=== PATIENT | male | born 1930 | race Caucasian/White ===

== ENCOUNTER 2017-02-23 11:18 | Inpatient (IN) | payer OTHER ==
[~2017-02-23] VITALS: Ht 182.9 cm; Wt 83.9 kg
[2017-02-23 11:34] VITALS: BP 101/64
--- NOTE | 2017-02-23 11:43 | NUR ---
PT W/C ASSISTED TO BED 1.
--- NOTE | 2017-02-23 11:49 | NUR ---
86M BIB FAMILY C/O ELEVATED POTASSIUM X TODAY; PER FAMILY, PT WAS SENT HERE BY DR. WARD D/T ABNORMAL LABS; PT AA&OX4 AT THIS TIME, PERRLA, BL LUNG SOUNDS CLEAR, RR EVEN/UNLABORED, SKIN IS WARM/DRY/INTACT AT THIS TIME; PT NOTED WITH ERYTHEMA TO LEFT BUTTOCKS, DARK DISCOLORATION TO RT LOWER EXTREMITY FROM SURGERY 50 YEARS AGO, AND PINK DISCOLORATION TO LEFT FOOT 4TH DIGIT FROM "PT CLIPPING HIS NAIL TOO CLOSE"; NO ACTIVE BLEEDING NOTED TO SITE AT THIS TIME; PT AMBULATES WITH CANE; PT NOTED WITH TACHYCARDIA ON THE MONITOR AT THIS TIME; PT STATES NO PAIN AND NO N/V/D AT THIS TIME; PT PLACED ON MONITOR, RESTING IN BED WITH HOB ELEVATED AND IN LOWEST POSITION; POSITIONED FOR COMFORT; ER MADE AWARE OF STATUS. WILL CONTINUE TO MONITOR. Addendum: 02/23/17 at 1411 by Wummelkiste ERYTHEMA NOTED TO RIGHT/LEFT BUTTOCKS
--- NOTE | 2017-02-23 12:02 | NUR ---
XRAY AT BEDSIDE.
[2017-02-23 12:08] LABS: BASOPHILS # (AUTO) 0.1 K/uL (0.00-0.22); BASOPHILS % (AUTO) 1.1 % (0.0-2.0); EOSINOPHILS # (AUTO) 0.1 K/uL (0-0.4); EOSINOPHILS % (AUTO) 0.9 % (0.0-4.0); HEMATOCRIT 32.6 % (36-52); HEMOGLOBIN 10.5 g/dL (12.0-18.0); LYMPHOCYTES # (AUTO) 0.5 K/uL (2.0-11.5); LYMPHOCYTES % (AUTO) 3.9 % (20.5-51.1); MEAN CORPUSCULAR HEMOGLOBIN 31 pg (27-31); MEAN CORPUSCULAR HGB CONC 32 g/dL (33-37); MEAN CORPUSCULAR VOLUME 95 fL (80-94); MONOCYTES # (AUTO) 0.9 K/uL (0.8-1.0); MONOCYTES % (AUTO) 6.6 % (1.7-9.3); NEUTROPHILS # (AUTO) 11.4 K/uL (1.8-7.7); NEUTROPHILS % (AUTO) 87.5 % (42.2-75.2); PLATELET COUNT (AUTO) 368 K/uL (140-450); RED BLOOD CELL COUNT(AUTO) 3.45 MIL/uL (4.20-6.10); RED CELL DISTRIBUTION WIDTH 14.9 % (11.6-13.7)
[2017-02-23] MEDS ORDERED: PREDNISONE 5 MG TABLET (12:13)
[2017-02-23] MEDS ORDERED: LORAZEPAM 1 MG TABLET (12:13)
[2017-02-23] MEDS ORDERED: BICALUTAMIDE 50 MG TABLET (12:13)
[2017-02-23] MEDS ORDERED: ENALAPRIL MALEATE 10 MG TAB (12:13)
[2017-02-23 12:28] LABS: PROTHROMBIN TIME 11.2 secs (10.8-13.4)
[2017-02-23 12:29] LABS: ALBUMIN 2.8 g/dL (3.4-5.0); ANION GAP 18.1 (8-16); ASPARTATE AMINOTRANSFERASE 20 U/L (15-37); CARBON DIOXIDE 19.6 mmol/L (21-32); CHLORIDE 108 mmol/L (98-107); GLUCOSE 162 mg/dL (74-106); POTASSIUM 5.7 mmol/L (3.5-5.1); SODIUM SERUM 140 mmol/L (136-145); TOTAL BILIRUBIN 0.5 mg/dL (0.0-1.0)
[2017-02-23 12:33] LABS: UREA NITROGEN, BLOOD 99 mg/dL (7-18)
[2017-02-23 12:34] LABS: CREATININE 6.2 mg/dL (0.7-1.3)
[2017-02-23] MEDS ORDERED: SODIUM POLYSTYRENE 15 GM/60 ML UDBTL PO ONE (12:40)
[2017-02-23] MEDS ORDERED: NACL 0.9% 1,000 ML IV ONE (13:15)
[2017-02-23] MEDS ORDERED: ONDANSETRON 4 MG/2 ML VIAL IVP PRN (13:35)
[2017-02-23] MEDS ORDERED: MORPHINE SULFATE 2 MG/ML SYR IVP PRN (13:35)
--- NOTE | 2017-02-23 14:12 | NUR ---
REPORT GIVEN TO BRITTANY DYER
--- NOTE | 2017-02-23 14:20 | NUR ---
Patient will be admitted to care of DR. DELATORRE. Admited to TELEMETRY. Will go to room 107A. Belongings list completed. Report to BRITTANY DYER.
--- NOTE | 2017-02-23 14:30 | NUR ---
RECEIVED PT ON UNIT [facility]IA [facility], PT IS A/OX4, AMBULATES WITH ASSIST, IV IS ON THE LEFT AC, PATENT, INTACT, FLUSHING WELL, PT HAS DISCOLORATION ON HIS RIGHT LOWER EXTREMITY, NO S/S OF RESPIRATORY DISTRESS OR DISCOMFORT NOTED, ORIENTED PT TO ROOM, DISCUSSED PLAN OF CARE WITH PT, PT VERBALIZED UNDERSTANDING, SAFETY/FALL PRECAUTIONS ARE IN PLACE, FAMILY IS AT BEDSIDE, CALL LIGHT WITHIN REACH, WILL CONTINUE TO MONITOR.
[2017-02-23 16:00] VITALS: BP 136/75
[2017-02-23] MEDS ORDERED: SODIUM POLYSTYRENE 15 GM/60 ML UDBTL PO SCH (17:30)
[2017-02-23] MEDS ORDERED: NACL 0.9% 500 ML IV SCH (17:30)
[2017-02-23] MEDS ORDERED: SODIUM POLYSTYRENE 15 GM/60 ML UDBTL PO PRN (18:30)
--- NOTE | 2017-02-23 18:30 | NUR ---
CALLED DR. ARENAS BACK I LET HIM KNOW I HAD DONE THE BLADDER SCAN AND THE PT HAD [address] ARENAS GIVE FLUIDS NS AT 75ML/HR AFTER BOLUS, GIVE 1 AMP OF CALCIUM CHLORIDE IVP OVER 10MIN, 1 AMP OF D5O, 1 AMP OF SODIUM BI CARB, 10 UNITS OF INSULIN, RENAL ULTRASOUND STAT AND INSERT FELICIANO.
--- NOTE | 2017-02-23 18:31 | NUR ---
NS 500 ML IV BOLUS STARTED AT THIS TIME.
[2017-02-23 19:11] LABS: APPEARANCE,URINE CLEAR (CLEAR); BILIRUBIN,URINE NEGATIVE (NEGATIVE); BLOOD, URINE TRACE-I (NEGATIVE); COLOR,URINE YELLOW (YELLOW); LEUKOCYTE ESTERASE ,URINE NEGATIVE (NEGATIVE); NITRITE, URINE NEGATIVE (NEGATIVE); PH,URINE 5.5 (5.0-9.0); UGLUCOSE NEGATIVE (NEGATIVE)
[2017-02-23] MEDS ORDERED: INSULIN HUMAN REGULAR 100 UNITS/ML 10 ML VIAL IVP SCH (19:35)
[2017-02-23] MEDS ORDERED: DEXTROSE 50% 50 ML SYR IVP SCH (19:35)
[2017-02-23] MEDS ORDERED: SODIUM BICARBONATE 8.4% PFS 50 MEQ/50 ML SYR IVP SCH (19:35)
--- NOTE | 2017-02-23 19:45 | NUR ---
ENDORSED PT TO DIRECTOR NICU NURSE, FOR CONTINUITY OF CARE, PT STABLE AT THIS TIME.
--- NOTE | 2017-02-23 19:46 | NUR ---
RECEIVED REPORT FROM DAY SHIFT NURSE. PT LYING COMFORTABLY IN BED. AAOX4. RELATIVES AT BEDSIDE. IV TO LEFT AC #20G. DISCUSSED PLAN OF CARE, PT AND RELATIVES VERBALIZED UNDERSTANDING. SAFETY PRECAUTION IN PLACE. CALL LIGHT WITHIN REACH. WILL CONTINUE TO MONITOR.
[2017-02-23 20:00] VITALS: BP 125/68
--- NOTE | 2017-02-23 20:50 | NUR ---
DR. ARENAS IS HERE TO SEE PT. ORDERED BMP AND CBC ON 02/24/17
[2017-02-23] MEDS: NACL 0.9% 1,000 ML IV SCH (20:59)
[2017-02-23] MEDS ORDERED: CALCIUM CHLORIDE 10% 100 MG/ML SYR IVP SCH (21:00)
[2017-02-23] MEDS ORDERED: INSULIN LISPRO 100 UNITS/ML VIAL SUBQ SCH (21:00)
--- NOTE | 2017-02-23 21:00 | NUR ---
FELICIANO CATH 16F INSERTED. PT TOLERATED PROCEDURE WELL.
[2017-02-23] MEDS: HYDROcodone/APAP 5/325 MG 1 TAB TAB PO PRN (21:07)
[2017-02-23 21:18] LABS: RBC,URINE NONE SEEN /HPF (0-5); WBC,URINE 0-5 (RARE) /HPF (0-5)
--- NOTE | 2017-02-23 23:30 | NUR ---
PT LYING COMFORTABLY IN BED. NO C/O PAIN OR DISCOMFORT. ALL NEEDS MET AT THIS TIME. CALL LIGHT WITHIN REACH.
[2017-02-24] VITALS: BP 115/62
--- NOTE | 2017-02-24 02:00 | NUR ---
PT IS LEEPING. NO S/S OF DISTRESS NOTED. CALL LIGHT WITHIN REACH. Addendum: 02/24/17 at 0609 by Thomas Murdock RN DISREGARD.
--- NOTE | 2017-02-24 02:00 | NUR ---
PT IS SLEEPING. NO S/S OF DISTRESS NOTED. CALL LIGHT WITHIN REACH.
--- NOTE | 2017-02-24 03:40 | NUR ---
PT AWAKE, LYING COMFORTABLY IN BED. NO C/O PAIN OR DISCOMFORT. CALL LIGHT WITHIN REACH.
[2017-02-24 04:00] VITALS: BP 115/61
--- NOTE | 2017-02-24 05:36 | NUR ---
PT SLEEPING BUT WAKES EASILY. NO S/S OF DISTRESS. CALL LIGHT WITHIN REACH
[2017-02-24 07:00] LABS: BASOPHILS # (AUTO) 0.1 K/uL (0.00-0.22); BASOPHILS % (AUTO) 1.1 % (0.0-2.0); EOSINOPHILS # (AUTO) 0.1 K/uL (0-0.4); EOSINOPHILS % (AUTO) 1.2 % (0.0-4.0); HEMATOCRIT 29.1 % (36-52); HEMOGLOBIN 9.3 g/dL (12.0-18.0); LYMPHOCYTES # (AUTO) 1.7 K/uL (2.0-11.5); MEAN CORPUSCULAR HEMOGLOBIN 31 pg (27-31); MEAN CORPUSCULAR HGB CONC 32 g/dL (33-37); MEAN CORPUSCULAR VOLUME 96 fL (80-94); MONOCYTES # (AUTO) 1.1 K/uL (0.8-1.0); MONOCYTES % (AUTO) 9.8 % (1.7-9.3); NEUTROPHILS # (AUTO) 8.1 K/uL (1.8-7.7); NEUTROPHILS % (AUTO) 72.9 % (42.2-75.2); PLATELET COUNT (AUTO) 292 K/uL (140-450); RED BLOOD CELL COUNT(AUTO) 3.03 MIL/uL (4.20-6.10); WHITE BLOOD COUNT (AUTO) 11.1 K/uL (4.8-10.8)
--- NOTE | 2017-02-24 07:10 | NUR ---
ENDORSED PT TO DAY SHIFT NURSE. PT IN STABLE CONDITION.
--- NOTE | 2017-02-24 07:15 | NUR ---
RECEIVED REPORT FROM SONG AND DANCE PERFORMER NURSE, PT IS SLEEPING IN BED BUT EASILY AWAKEN, A/OX4, AMBULATES WITH ASSIST, PT HAS IV ON THE LEFT AC, PATENT, INTACT, FLUSHING WELL, PT HAS RIGHT LOWER EXTREMITY DISCOLORATION, FELICIANO CATHETER IS IN PLACE WITH 100ML OF CLEAR, YELLOW URINE, NO S/S OF RESPIRATORY DISTRESS OR DISCOMFORT NOTED, DISCUSSED PLAN OF CARE WITH PT, PT VERBALIZED UNDERSTANDING, SAFETY/FALL PRECAUTIONS ARE IN PLACE, CALL LIGHT IS WITHIN REACH, WILL CONTINUE TO MONITOR.
[2017-02-24 07:25] LABS: ANION GAP 18.1 (8-16); CARBON DIOXIDE 18.6 mmol/L (21-32); CHLORIDE 113 mmol/L (98-107); GLUCOSE 91 mg/dL (74-106); POTASSIUM 4.7 mmol/L (3.5-5.1); SODIUM SERUM 145 mmol/L (136-145)
[2017-02-24 07:27] LABS: MAGNESIUM 1.7 mg/dL (1.8-2.4); PHOSPHORUS 6.3 mg/dL (2.5-4.9)
[2017-02-24 07:54] LABS: UREA NITROGEN, BLOOD 90 mg/dL (7-18)
[2017-02-24 07:55] LABS: CREATININE 6.1 mg/dL (0.7-1.3)
[2017-02-24 08:00] VITALS: BP 123/51
--- NOTE | 2017-02-24 08:54 | NUR ---
DUE MEDICATION GIVEN, PT TOLERATED WELL, PATIENT'S FAMILY IS AT BEDSIDE, CALL LIGHT WITHIN REACH.
--- NOTE | 2017-02-24 09:00 | NUR ---
PATIENT HAS BEEN SCREENED AND CATEGORIZED MODERATE NUTRITION RISK. PATIENT WILL BE SEEN WITHIN 3-5 DAYS OF ADMISSION. 02/26/17-02/28/[address]
[2017-02-24] MEDS: NACL 0.9% 1,000 ML IV SCH ×2 (09:20→12:35)
--- NOTE | 2017-02-24 10:33 | NUR ---
PT OFF UNIT, TAKEN TO RADIOLOGY TO HAVE CT SCAN OF ABDOMEN DONE. PT LEFT IN STABLE CONDITION.
--- NOTE | 2017-02-24 11:00 | NUR ---
PT RETURNED TO UNIT FROM RADIOLOGY, PT STABLE, CALL LIGHT WITHIN REACH.
[2017-02-24 12:00] VITALS: BP 124/66
--- NOTE | 2017-02-24 13:00 | NUR ---
SPOKE TO DR. FRIED, UROLOGIST, INFORMED HIM DR. DELATORRE HAD REQUESTED A CONSULT FOR PATIENT.
[2017-02-24] MEDS ORDERED: CALCIUM ACETATE 667 MG TAB PO SCH (13:40)
[2017-02-24] MEDS ORDERED: MAG SULF 2000 MG/WATER PREMIX 50 ML IV SCH (14:00)
--- NOTE | 2017-02-24 15:33 | NUR ---
PT TRANSFERRED TO WOUND CARE BED, PATIENT TOLERATED WELL. Addendum: 02/24/17 at 1535 by Beckie Fernando RN WRONG ENTRY. PT WAS NOT TRANSFERRED TO WOUND CARE BED.
[2017-02-24 16:00] VITALS: BP 127/72
--- NOTE | 2017-02-24 16:00 | NUR ---
PATIENT REFUSED PNA AND FLU VACCINE.
--- NOTE | 2017-02-24 19:15 | NUR ---
ENDORSED PT TO REGISTERED SAFETY ENGINEER NURSE FOR CONTINUITY OF CARE, PT STABLE AT THIS TIME.
--- NOTE | 2017-02-24 19:16 | NUR ---
PATIENT REPORT RECEIVED FROM MORNING NURSE. PATIENT IS AWAKE, ALERT AND ORIENTED. NO SIGNS AND SYMPTOMS OF DISTRESS NOTED. PATIENT'S SON IS AT BEDSIDE. IV SITE NOTED ON LEFT AC, IVF INFUSING WELL. BED IN LOWEST POSITION, SIDE RAILS UP AND CALL LIGHT WITHIN REACH. WILL CONTINUE TO MONITOR.
--- NOTE | 2017-02-24 19:30 | NUR ---
PATIENT SEEN BY DR. RFIED. SON IS AT BEDSIDE
[2017-02-24 20:00] VITALS: BP 114/66
[2017-02-24] MEDS: HYDROcodone/APAP 5/325 MG 1 TAB TAB PO PRN (20:12)
--- NOTE | 2017-02-24 23:41 | NUR ---
CHECKED ON PATIENT, PATIENT IS ASLEEP. NO SIGNS AND SYMPTOMS OF DISTRESS NOTED. BREATHING EVEN AND UNLABORED. BED IN LOWEST POSITION, SIDE RAILS UP AND CALL LIGHT WITHIN REACH. WILL CONTINUE TO MONITOR.
[2017-02-25] VITALS: BP 118/68
[2017-02-25] MEDS: HYDROcodone/APAP 5/325 MG 1 TAB TAB PO PRN (03:53)
[2017-02-25 04:00] VITALS: BP 137/72
[2017-02-25 06:32] LABS: BASOPHILS # (AUTO) 0.2 K/uL (0.00-0.22); BASOPHILS % (AUTO) 1.9 % (0.0-2.0); EOSINOPHILS # (AUTO) 0.2 K/uL (0-0.4); EOSINOPHILS % (AUTO) 1.7 % (0.0-4.0); HEMATOCRIT 25.6 % (36-52); HEMOGLOBIN 8.4 g/dL (12.0-18.0); LYMPHOCYTES # (AUTO) 1.3 K/uL (2.0-11.5); LYMPHOCYTES % (AUTO) 13.4 % (20.5-51.1); MEAN CORPUSCULAR HEMOGLOBIN 31 pg (27-31); MEAN CORPUSCULAR HGB CONC 33 g/dL (33-37); MEAN CORPUSCULAR VOLUME 96 fL (80-94); PLATELET COUNT (AUTO) 249 K/uL (140-450); RED BLOOD CELL COUNT(AUTO) 2.67 MIL/uL (4.20-6.10); RED CELL DISTRIBUTION WIDTH 15.1 % (11.6-13.7); WHITE BLOOD COUNT (AUTO) 9.7 K/uL (4.8-10.8)
[2017-02-25 06:56] LABS: ALBUMIN 1.9 g/dL (3.4-5.0); ANION GAP 14.7 (8-16); ASPARTATE AMINOTRANSFERASE 21 U/L (15-37); CARBON DIOXIDE 19.8 mmol/L (21-32); CHLORIDE 110 mmol/L (98-107); GLUCOSE 101 mg/dL (74-106); PHOSPHORUS 5.7 mg/dL (2.5-4.9); POTASSIUM 3.5 mmol/L (3.5-5.1); SODIUM SERUM 141 mmol/L (136-145); TOTAL BILIRUBIN 0.5 mg/dL (0.0-1.0); URIC ACID 6.3 mg/dL (2.6-7.2)
[2017-02-25 07:13] LABS: UREA NITROGEN, BLOOD 77 mg/dL (7-18)
[2017-02-25 07:14] LABS: CREATININE 5.8 mg/dL (0.7-1.3)
--- NOTE | 2017-02-25 07:20 | NUR ---
PATIENT REPORT GIVEN TO MORNING NURSE. PATIENT IS IN STABLE CONDITION
[2017-02-25] MEDS ORDERED: CALCIUM ACETATE 667 MG TAB PO SCH (08:00)
--- NOTE | 2017-02-25 08:00 | NUR ---
REPORT RECEIVED FROM [facility] NURSE. PT IN BED AWAKE ALERT AND ORIENTED. PT IS ABLE TO MAKE NEEDS KNOWN VIA URDU ONLY. PT IS ABLE TO FOLLOW COMMAND APPROPRIATELY. PT DENIES ANY PAIN AT THIS TIME. NO RESP DISTRESS NOTED. ALL SAFETY MEASURES IN PROGRESS. PT IS AWARE TO CALL FOR HELP AT ALL TIMES. NOT TO GET OOB WITHOUT ASSIST. V/S STABLE.
[2017-02-25 08:02] VITALS: BP 135/65
--- NOTE | 2017-02-25 08:57 | NUR ---
PT IN BED SLEEPING CALMLY. NO ACUTE DISTRESS NOTED. PT TOLERATED BREAKFAST WELL. PT IS NORMAL SINUS RHYTHM ON THE MONITOR.
[2017-02-25] MEDS ORDERED: ACET-1083 PO (09:45)
[2017-02-25] MEDS ORDERED: AMLO2.5T PO (09:59)
[2017-02-25 11:24] VITALS: BP 130/62
--- NOTE | 2017-02-25 15:35 | NUR ---
CM NOTE INITIAL REVIEW FAXED TO [facility] / FAX# [phone], ATTN: SAUD #[phone]
== END 2017-02-25 16:05 | disposition home or self-care (01) | DRG 469 ==
LOC: MED 11:18 → MTU 13:37 → OBSVTOIN 02-24 12:33
PROVIDERS: ADMIT Hospitalist; ATTEND Hospitalist
DX: N17.9 Acute kidney failure, unspecified (principal); E43 Unspecified severe protein-calorie malnutrition; E87.2 Acidosis; D64.9 Anemia, unspecified; C61 Malignant neoplasm of prostate; E87.5 Hyperkalemia; I12.9 Hypertensive chronic kidney disease with stage 1 through stage 4 chronic kidney disease, or unspecified chronic kidney disease; N13.30 Unspecified hydronephrosis; E83.42 Hypomagnesemia; N18.9 Chronic kidney disease, unspecified; N32.0 Bladder-neck obstruction; E83.39 Other disorders of phosphorus metabolism; E83.51 Hypocalcemia; D72.829 Elevated white blood cell count, unspecified; E78.00 Pure hypercholesterolemia, unspecified; Z87.891 Personal history of nicotine dependence; Z68.25 Body mass index [BMI] 25.0-25.9, adult; Z79.899 Other long term (current) drug therapy
CPT/HCPCS: 96360; 99285; G0378; 36415; 71010; 76770; 80048; 80053; 81001; 82728; 82948; 83540; 83735; 83880; 84100; 84132; 84484; 84550; 85025; 85610; 85730; 87081; 93005; J1644; J1815; J3475; J7030; Q0092

== ENCOUNTER 2017-02-27 12:53 | Emergency (ER) | payer OTHER ==
[~2017-02-27] VITALS: Ht 182.9 cm; Wt 88.9 kg
[~2017-02-27 12:53] MED LIST: ACET-1083 PO; AMLO2.5T PO; BICALUTAMIDE 50 MG TABLET; ENALAPRIL MALEATE 10 MG TAB; LORAZEPAM 1 MG TABLET; PREDNISONE 5 MG TABLET
[2017-02-27 13:00] VITALS: BP 122/65
--- NOTE | 2017-02-27 14:00 | NUR ---
86/M BIB SON HERE FOR LEG FELICIANO BAG CHANGE. LAST PLACED 1WK AGO. PT STS HE WOULD LIKE IT CHANGED TO BIGGER INDWELLING CATHETER BAG. PT STS UNK IF FEVERS AT HOME. DENIES N/V/D; SKIN IS PINK/WARM/DRY; AOX4 WITH EVEN AND STEADY GAIT; RR ARE EVEN AND UNLABORED; PT DENIES ANY FEVER, CP, SOB, OR COUGH AT THIS TIME; PATIENT STATES PAIN OF 0/10 AT THIS TIME; VSS; PATIENT POSITIONED FOR COMFORT,BED DOWN. ER MD MADE AWARE OF PT STATUS.
[2017-02-27 14:20] LABS: ANION GAP 15.4 (8-16); CARBON DIOXIDE 20.2 mmol/L (21-32); CHLORIDE 104 mmol/L (98-107); GLUCOSE 175 mg/dL (74-106); POTASSIUM 3.6 mmol/L (3.5-5.1); SODIUM SERUM 136 mmol/L (136-145)
[2017-02-27 14:27] LABS: UREA NITROGEN, BLOOD 76 mg/dL (7-18)
[2017-02-27 14:28] LABS: CREATININE 6.6 mg/dL (0.7-1.3)
[2017-02-27 14:30] LABS: BASOPHILS # (AUTO) 0.1 K/uL (0.00-0.22); BASOPHILS % (AUTO) 0.5 % (0.0-2.0); EOSINOPHILS # (AUTO) 0.1 K/uL (0-0.4); EOSINOPHILS % (AUTO) 0.5 % (0.0-4.0); HEMATOCRIT 25.9 % (36-52); HEMOGLOBIN 8.7 g/dL (12.0-18.0); LYMPHOCYTES # (AUTO) 0.6 K/uL (2.0-11.5); LYMPHOCYTES % (AUTO) 5.4 % (20.5-51.1); MEAN CORPUSCULAR HEMOGLOBIN 31 pg (27-31); MEAN CORPUSCULAR HGB CONC 34 g/dL (33-37); MEAN CORPUSCULAR VOLUME 93 fL (80-94); MONOCYTES % (AUTO) 8.2 % (1.7-9.3); NEUTROPHILS # (AUTO) 9.9 K/uL (1.8-7.7); NEUTROPHILS % (AUTO) 85.4 % (42.2-75.2); PLATELET COUNT (AUTO) 268 K/uL (140-450); RED CELL DISTRIBUTION WIDTH 14.7 % (11.6-13.7); WHITE BLOOD COUNT (AUTO) 11.7 K/uL (4.8-10.8)
[2017-02-27 15:04] VITALS: BP 111/60
--- NOTE | 2017-02-27 15:04 | NUR ---
Patient discharged with v/s stable. Written and verbal after care instructions given and explained. Patient verbalized understanding. Ambulatory with steady gait with cane. All questions addressed prior to discharge. Advised to follow up with PMD. Pt given indwelling catheter kit to change leg bag to indwelling catheter bag at night; er sechrist aware of plan of care and agrees with plan of care; wilder castano demostrated how to change leg bag to indwelling catheter bag; pt and pt's son verbalized understanded.
== END 2017-02-27 15:04 | disposition home or self-care (01) ==
LOC: MED 12:53
DX: Z46.6 Encounter for fitting and adjustment of urinary device (principal); I12.9 Hypertensive chronic kidney disease with stage 1 through stage 4 chronic kidney disease, or unspecified chronic kidney disease; N18.9 Chronic kidney disease, unspecified; Z79.899 Other long term (current) drug therapy; Z85.46 Personal history of malignant neoplasm of prostate
CPT/HCPCS: 36415; 80048; 85025; 99284

== ENCOUNTER 2017-03-04 19:57 | Inpatient (IN) | payer OTHER ==
[~2017-03-04] VITALS: Ht 182.9 cm; Wt 84.9 kg
[~2017-03-04 19:57] MED LIST changes: -ENALAPRIL MALEATE 10 MG TAB; -LORAZEPAM 1 MG TABLET
[2017-03-04 20:04] VITALS: BP 112/54
--- NOTE | 2017-03-04 20:20 | NUR ---
PT TAKEN TO BED 11.
[2017-03-04] MEDS ORDERED: IBUPROFEN 400 MG TAB ONE (20:25)
--- NOTE | 2017-03-04 21:00 | NUR ---
86Y/M PRESENTS TO ER C/O FEVER AND GENERALIZED BODY ACHE. PMH PROSTATE CANCER, HTN, KIDNEY DZ. NKA. PT AA&O NICARAGUAN SPEAKING, SON IS AT BEDSIDE AND STATES PT HAS BEEN ACTING "CONFUSED". PT IS ANSWERING QUESTIONS APPROPRIATELY AT THIS TIME. PT TAKES TYLENOL AT HOME AND 2 DAYS AGO HAD GENERALIZED PAIN W/ NO RELIEF FROM TYLENOL. PT STATES HE HAS HAD FEVER WELL. PT HAS CATHETER THAT WAS PLACED A WEEK AGO ACCORDING TO SON. URINE OUTPUT IS ADEQUATE, CLEAR, YELLOW URINE. ABD IS ROUND, SOFT, NON TENDER, ACTIVE BS X4, BL LUNG SOUNDS CLEAR THROUGH OUT, TACHYPNEA NOTED. PT IS ON RA 98%. PT HAS SCAR AND DARKENING NOTED TO RT ANKLE AREA, SON STATES IT IS FROM A SURGERY "MANY" YEARS AGO, NO OPEN SKIN, REDNESS OR BLEEDING NOTED. PT IN BED, FAMILY AT BEDSIDE, ER MD NOTIFED OF PT STATUS.
--- NOTE | 2017-03-04 21:07 | NUR ---
Patient being evaluated by Dr. Bryan at bedside.
[2017-03-04] MEDS ORDERED: NACL 0.9% 1,000 ML IV ONE (21:15)
[2017-03-04 21:47] LABS: BASOPHILS # (AUTO) 0.2 K/uL (0.00-0.22); BASOPHILS % (AUTO) 1.7 % (0.0-2.0); EOSINOPHILS # (AUTO) 0.2 K/uL (0-0.4); EOSINOPHILS % (AUTO) 1.4 % (0.0-4.0); HEMATOCRIT 24.8 % (36-52); HEMOGLOBIN 8.2 g/dL (12.0-18.0); LYMPHOCYTES # (AUTO) 0.8 K/uL (2.0-11.5); LYMPHOCYTES % (AUTO) 6.8 % (20.5-51.1); MEAN CORPUSCULAR HEMOGLOBIN 31 pg (27-31); MEAN CORPUSCULAR HGB CONC 33 g/dL (33-37); MEAN CORPUSCULAR VOLUME 94 fL (80-94); MONOCYTES # (AUTO) 1.3 K/uL (0.8-1.0); MONOCYTES % (AUTO) 11.1 % (1.7-9.3); NEUTROPHILS # (AUTO) 9.3 K/uL (1.8-7.7); PLATELET COUNT (AUTO) 240 K/uL (140-450); RED BLOOD CELL COUNT(AUTO) 2.63 MIL/uL (4.20-6.10); RED CELL DISTRIBUTION WIDTH 15.2 % (11.6-13.7); WHITE BLOOD COUNT (AUTO) 11.8 K/uL (4.8-10.8)
[2017-03-04 22:04] LABS: PROTHROMBIN TIME 13.3 secs (10.8-13.4)
[2017-03-04 22:19] LABS: ANION GAP 17.6 (8-16); ASPARTATE AMINOTRANSFERASE 19 U/L (15-37); CARBON DIOXIDE 18.7 mmol/L (21-32); CHLORIDE 104 mmol/L (98-107); GLUCOSE 136 mg/dL (74-106); POTASSIUM 4.3 mmol/L (3.5-5.1); SODIUM SERUM 136 mmol/L (136-145); TOTAL BILIRUBIN 0.5 mg/dL (0.0-1.0)
[2017-03-04 22:29] LABS: UREA NITROGEN, BLOOD 70 mg/dL (7-18)
[2017-03-04 22:58] LABS: APPEARANCE,URINE SL CLOUDY (CLEAR); BILIRUBIN,URINE NEGATIVE (NEGATIVE); BLOOD, URINE 2+ (NEGATIVE); COLOR,URINE YELLOW (YELLOW); LEUKOCYTE ESTERASE ,URINE TRACE (NEGATIVE); NITRITE, URINE POSITIVE (NEGATIVE); PH,URINE 5.5 (5.0-9.0); UGLUCOSE NEGATIVE (NEGATIVE)
[2017-03-04 23:16] LABS: HYALINE CASTS, URINE 0-10 /LPF (None Seen); RBC,URINE 3-10 (FEW) /HPF (0-5); URINE AMORPHOUS URATE 4+ /HPF (None Seen)
[2017-03-05] VITALS (10 sets, daily range): BP systolic 121–143; BP diastolic 49–76
[2017-03-05] MEDS ORDERED: ASPIRIN 325 MG TAB PO ONE (00:10)
[2017-03-05] MEDS ORDERED: NACL 0.9% 1,000 ML IV ONE (00:10)
[2017-03-05] MEDS ORDERED: CLOPIDOGREL 75 MG TAB PO ONE (00:15)
[2017-03-05] MEDS ORDERED: cefTRIAXone 1,000 MG VIAL ONE (00:34)
[2017-03-05] MEDS ORDERED: ONDANSETRON 4 MG/2 ML VIAL IVP PRN (00:35)
[2017-03-05] MEDS ORDERED: MORPHINE SULFATE 2 MG/ML SYR IVP PRN (00:35)
[2017-03-05] MEDS ORDERED: ACETAMINOPHEN 325 MG TAB PO PRN (00:35)
[2017-03-05] MEDS ORDERED: COL100L GT (01:13)
[2017-03-05] MEDS ORDERED: LACT10SO1 PO (01:18)
[2017-03-05] MEDS ORDERED: ACET-2619 PO (01:20)
[2017-03-05] MEDS ORDERED: SODI650T2 PO (01:21)
[2017-03-05] MEDS ORDERED: VITD1000 PO (01:22)
[2017-03-05] MEDS ORDERED: ABIR250T PO (01:23)
--- NOTE | 2017-03-05 01:23 | NUR ---
Patient will be admitted to care of DR HEWITT . Admited to TELE. Will go to room 121-B. Belongings list completed. Report to MARGOTH.
[2017-03-05] MEDS: NACL 0.9% 1,000 ML IV SCH ×2 (01:43→13:52)
--- NOTE | 2017-03-05 02:05 | NUR ---
ADMITTED PATIENT TO THE TELE UNIT. PATIENT RESTING IN BED, AWAKE ALERT ORIENTED X3, LATVIAN SPEAKING, NO S/S OF DISTRESS NOTED, RESPIRATION EVEN AND UNLABORED, DENIES PAIN AT THIS TIME. IV PATENT AND INTACT, INFUSING NS AT 75ML/HR. FELICIANO CATHETER IN PLACE, DRAINING URINE BY GRAVITY. TELE MONITOR PLACED ON PATIENT, ORIENTED PATIENT TO THE ROOM. CALL LIGHT WITHIN REACH, SAFETY MEASURE ENSURED WILL CONTINUE TO MONITOR.
--- NOTE | 2017-03-05 03:24 | NUR ---
RUBBER TRIMMER [id number] ASSISTED DURING THE ADMISSION QUESTIONS AT FIRST, BUT PATIENT STATED, " I DON'T UNDERSTAND." THE SON SAID," MY FATHER HAS HEARING PROBLEM. YOU CAN ASK ME QUESTIONS." THE PATIENT DID NOT UNDERSTAND MY QUESTIONS EVEN RUBBER TRIMMER TRANSLATED THE QUESTIONS INTO OMANI. AFTER PATIENT'S SON TRANSLATED MY QUESTIONS, PATIENT WAS ABLE TO ANSWER SOME OF THE QUESTIONS. THE SON ALSO PROVIDED INFORMATION REGARDING PATIENT'S MEDICAL CONDITIONS AND HISTORY.
--- NOTE | 2017-03-05 05:34 | NUR ---
PATIENT IS SLEEPING, BUT EASY TO AROUSE. NO S/S OF DISTRESS NOTED, RESPIRATION EVEN AND UNLABORED, CALL LIGHT WITHIN REACH, SAFETY MEASURE ENSURED, WILL CONTINUE TO MONITOR.
[2017-03-05 06:33] LABS: BASOPHILS # (AUTO) 0.1 K/uL (0.00-0.22); BASOPHILS % (AUTO) 1.2 % (0.0-2.0); EOSINOPHILS # (AUTO) 0.3 K/uL (0-0.4); EOSINOPHILS % (AUTO) 2.9 % (0.0-4.0); HEMATOCRIT 22.9 % (36-52); HEMOGLOBIN 7.4 g/dL (12.0-18.0); LYMPHOCYTES # (AUTO) 1.5 K/uL (2.0-11.5); MEAN CORPUSCULAR HEMOGLOBIN 31 pg (27-31); MEAN CORPUSCULAR HGB CONC 33 g/dL (33-37); MEAN CORPUSCULAR VOLUME 96 fL (80-94); MONOCYTES # (AUTO) 1.2 K/uL (0.8-1.0); MONOCYTES % (AUTO) 11.2 % (1.7-9.3); NEUTROPHILS # (AUTO) 7.8 K/uL (1.8-7.7); NEUTROPHILS % (AUTO) 70.7 % (42.2-75.2); PLATELET COUNT (AUTO) 206 K/uL (140-450); RED BLOOD CELL COUNT(AUTO) 2.39 MIL/uL (4.20-6.10); WHITE BLOOD COUNT (AUTO) 10.9 K/uL (4.8-10.8)
--- NOTE | 2017-03-05 06:54 | NUR ---
PATIENT IS SLEEPING, NO CHANGE IN CONDITION, RESPIRATION EVEN AND UNLABORED, CALL LIGHT WITHIN REACH, SAFETY MEASURE ENSURED, WILL CONTINUE TO MONITOR.
--- NOTE | 2017-03-05 07:21 | NUR ---
ENDORSED PLAN OF CARE TO DAY RN NIMO, PATIENT RESTING IN BED, IN STABLE CONDITION. RESPIRATION EVEN AND UNLABORED.
--- NOTE | 2017-03-05 07:25 | NUR ---
RECEIVED PT REPORT AT BEDSIDE FROM NIGHT NURSE. PT IS AAOX4 AND SHOWS NO S/S OF ACUTE DISTRESS ON ROOM AIR. PT SKIN IS INTACT HOWEVER DOES HAVE SCAR AND DARK BROWN DISCOLORATION ON THE RT LOWER AZUL. BLE PITTING EDEMA 2+. IV NOTED ON THE LT FA WITH IVF'S INFUSING WELL. IV IS PATENT AND INTACT WITH NO SIGNS OF INFILTRATION. ON TELE MONITOR. PT WAS EXPLAINED POC FOR TODAY AND VERBALIZE UNDERSTANDING. THE BED IS IN LOW POSITION WITH CALL LIGHT WITHIN REACH.WILL CONTINUE TO MONITOR.
[2017-03-05 07:43] LABS: ALBUMIN 1.7 g/dL (3.4-5.0); ANION GAP 18.6 (8-16); ASPARTATE AMINOTRANSFERASE 17 U/L (15-37); CARBON DIOXIDE 17.4 mmol/L (21-32); CHLORIDE 107 mmol/L (98-107); GLUCOSE 96 mg/dL (74-106); SODIUM SERUM 139 mmol/L (136-145); TOTAL BILIRUBIN 0.4 mg/dL (0.0-1.0)
[2017-03-05 07:49] LABS: CREATININE 5.7 mg/dL (0.7-1.3); UREA NITROGEN, BLOOD 66 mg/dL (7-18)
--- NOTE | 2017-03-05 07:50 | NUR ---
PAGED DR HEWITT FOR BUN-60 AND CR-5.7. WILL AWAIT CALL BACK
--- NOTE | 2017-03-05 08:15 | NUR ---
RECEIVED CALL BACK FROM DR AZUL AND IS AWARE OF ELEVATED BUN AND CR. RECOMMENDED RENAL CONSULT. TO PLACE ORDERS.
--- NOTE | 2017-03-05 10:30 | NUR ---
PATIENT HAS BEEN SCREENED AND CATEGORIZED MODERATE NUTRITION RISK. PATIENT WILL BE SEEN WITHIN 3-5 DAYS OF ADMISSION. 03/08/17 - 03/10/17 [address] MBA, RD
--- NOTE | 2017-03-05 10:30 | NUR ---
PT FAMILY AT BEDSIDE AND WOULD LIKE TO SPEAK WITH DR AZUL. PT FAMILY AWARE DR WILL BE IN LATER TODAY, HOWEVER NO TIME IS SET AND THEY WILL BE NOTIFIED WHEN SHE COMES.
--- NOTE | 2017-03-05 11:20 | NUR ---
PT DENIES PAIN AND SHOWS NO S/S OF ACUTE DISTRESS ON ROOM AIR. PT BED IS IN LOW POSITION WITH CALL LIGHT WITHIN REACH.
--- NOTE | 2017-03-05 13:00 | NUR ---
PT BEING SEEN BY DR AZUL. IS AWARE PT WOULD LIKE TO SPEAK WITH HER. PT FAMILY PHONE NUMBER WAS GIVEN TO
--- NOTE | 2017-03-05 13:20 | NUR ---
PT IS SLEEPING AND SHOWS NO S/S OF ACUTE DISTRESS ON ROOM AIR. PT IS EASILY AWAKEN BY VOICE. PT DENIES PAIN. ALL NEEDS MET AT THIS TIME.
--- NOTE | 2017-03-05 15:10 | NUR ---
PT IS AAOX4 AND SHOWS NO S/S OF ACUTE DISTRESS ON ROOM AIR. PT DENIES PAIN. V/S WITHIN NORMAL LIMITS AND CHARTED. PT DENIES SOB, ITCHINESS AND BACK PAIN. PT IS AFEBRILE. Addendum: 03/05/17 at 1714 by Doretha Low RN WRONG TIME; ACTUAL TIME IS 1710
--- NOTE | 2017-03-05 15:10 | NUR ---
PT HAS FAMILY AT BEDSIDE. PT FAMILY WERE MADE AWARE OF THE RISKS AND BENEFITS FOR BLOOD TRANSFUSION BY DR AZUL EARLIER TODAY. PT FAMILY SIGNED CONSENT.
--- NOTE | 2017-03-05 16:25 | NUR ---
PT IS AAOX4 AND SHOWS NO S/S OF ACUTE DISTRESS ON ROOM AIR. PT DENIES PAIN. V/S WITHIN NORMAL LIMITS AND CHARTED. PT DENIES SOB, ITCHINESS AND BACK PAIN. PT IS AFEBRILE.
--- NOTE | 2017-03-05 16:55 | NUR ---
PT IS SLEEPING AND EASILY AROUSABLE AND AWAKENS TO VOICE AND SHOWS NO S/S OF ACUTE DISTRESS ON ROOM AIR. PT DENIES PAIN. V/S WITHIN NORMAL LIMITS AND CHARTED. PT DENIES SOB, ITCHINESS AND BACK PAIN. PT IS AFEBRILE.
--- NOTE | 2017-03-05 17:20 | NUR ---
PT IS BEING SEEN BY DR KENT. FAMILY AT BEDSIDE.
--- NOTE | 2017-03-05 18:10 | NUR ---
PT DENIES PAIN AND SOB. PT DENIES ITCHINESS. PT HR IS 108 TEMPERATURE IS 98.2 FAHRENHEIT ORALLY. PT SHOWS NO S/S OF ACUTE DISTRESS ON ROOM AIR. WILL CONTINUE TO MONITOR.
--- NOTE | 2017-03-05 19:00 | NUR ---
PT VOMITED. TEMPORAL TEMPERATURE IS 101.9, ORAL TEMPERATURE 98.4. BLOOD TRANSFUSION WAS STOPPED AND DR HEWITT WAS PAGED.
--- NOTE | 2017-03-05 19:15 | NUR ---
DR HEWITT CALLED BACK AND NOTIFIED OF PT TEMPORAL TEMPERATURE IS 100.6 HR IS 120. PT DENIES CHEST PAIN, SOB, ITCHINESS, BACK PAIN. DR ORDERED BENADRYL 25 MG IVP FOR ALLERGY AND AGITATION. WILL PLACE IN ORDERS.
[2017-03-05] MEDS ORDERED: diphenhydrAMINE 50 MG/ML VIAL IVP PRN (19:20)
--- NOTE | 2017-03-05 19:34 | NUR ---
ADMINISTERED BENADRYL 25 MG IVP FOR ALLERGY RXN TO BLOOD TRANSFUSION. PT DENIES CHEST PAIN, SOB, AND DENIES ITCHINESS. PT HR IS 115 TEMPORAL SHOWS ELEVATED TEMPERATURE AT 100.9 FAHRENHEIT, ORAL CONTINUES TO READ WNL TEMPERATURE. PT'S ORAL TEMP IS 98.9 FAHRENHEIT. PT REPORT WAS HANDED OF TO MILAGRO SOTO. SHE IS AWARE OF ELEVATED TEMPERATURE AND ELEVATED HR. PT IN STABLE CONDITION.
--- NOTE | 2017-03-05 19:40 | NUR ---
RECEIVED REPORT FROM DAY RN. PATIENT RESTING IN BED, AWAKE ALERT, HAVING BLOOD TRANSFUSION. NO S/S OF DISTRESS NOTED, RESPIRATION EVEN AND UNLABORED, DENIES PAIN OR SOB. FAMILY MEMBERS AT BEDSIDE. PLAN OF CARE DISCUSSED, VERBALIZED UNDERSTANDING. CALL LIGHT WITHIN REACH, SAFETY MEASURE ENSURED, WILL CONTINUE TO MONITOR.
--- NOTE | 2017-03-05 20:24 | NUR ---
BLOOD TRANSFUSION FINISHED, VITAL SIGNS READ T 98.9, BP 129/60, HR 98, RR 19, O2SAT 95%, PATIENT DENIES PAIN, AND SOB. CALL LIGHT WITHIN REACH, SAFETY MEASURE ENSURED, WILL CONTINUE TO MONITOR.
[2017-03-05] MEDS: ATORVASTATIN 20 MG TAB PO SCH (20:57)
--- NOTE | 2017-03-05 21:00 | NUR ---
DUE MEDICATION GIVE, PATIENT TOLERATED WELL, NO S/S OF DISTRESS NOTED, RESPIRATION EVEN AND UNLABORED, CALL LIGHT WITHIN REACH, SAFETY MEASURE ENSURED, WILL CONTINUE TO MONITOR.
--- NOTE | 2017-03-05 23:30 | NUR ---
NO CHANGE IN CONDITION. PATIENT WAS SLEEPING, EASY TO AROUSE. OFFERED WATER PATIENT REQUESTED. CALL LIGHT WITHIN REACH, SAFETY MEASURE ENSURED, WILL CONTINUE TO MONITOR.
[2017-03-06] VITALS: BP 138/63
--- NOTE | 2017-03-06 01:03 | NUR ---
ROCEPHIN 1G STARTED, PATIENT TOLERATED WELL. NO S/S OF DISTRESS NOTED, RESPIRATION EVEN AND UNLABORED, CALL LIGHT WITHIN REACH, SAFETY MEASURE ENSURED, WILL CONTINUE TO MONITOR.
--- NOTE | 2017-03-06 03:09 | NUR ---
PATIENT WAS SLEEPING, BUT EASY TO AROUSE, NO S/S OF DISTRESS NOTED, RESPIRATION EVEN AND UNLABORED, DENIES PAIN AT THIS TIME. CALL LIGHT WITHIN REACH, SAFETY MEASURE ENSURED, WILL CONTINUE TO MONITOR.
[2017-03-06 04:00] VITALS: BP 127/75
[2017-03-06] MEDS: NACL 0.9% 1,000 ML IV SCH ×2 (04:45→16:41)
--- NOTE | 2017-03-06 05:44 | NUR ---
NO CHANGE IN CONDITION. PATIENT IS SLEEPING, RESPIRATION EVEN AND UNLABORED, CALL LIGHT WITHIN REACH, SAFETY MEASURE ENSURED, WILL CONTINUE TO MONITOR.
--- NOTE | 2017-03-06 07:20 | NUR ---
ENDORSED PLAN OF CARE TO DAY RN. PATIENT IS IN STABLE CONDITION. NO S/S OF DISTRESS NOTED.
--- NOTE | 2017-03-06 07:26 | NUR ---
RECEIVED PT IN BED. AWAKE. ALERT ORIENTED X4. ROMANIAN SPEAKING. NO SOB NOTED. DENIES ANY PAIN OR DISCOMFORT AT THIS TIME. PT ON BEDREST DUE TO BODY WEAKNESS. FELICIANO CATHETER IN PLACE. DRAINING YELLOW URINE. SAFETY PRECAUTION IN PLACE. CALL LIGHT WITHIN REACH.
[2017-03-06 08:00] VITALS: BP 123/86
[2017-03-06] MEDS: DOCUSATE 100 MG/10 ML UDC PO SCH (08:23)
[2017-03-06] MEDS: ASPIRIN 81 MG TAB.CHEW PO SCH (08:24)
[2017-03-06] MEDS: SODIUM BICARBONATE 650 MG TAB PO SCH (08:24)
[2017-03-06] MEDS: amLODIPine 5 MG TAB PO SCH (08:24)
[2017-03-06] MEDS: VITAMIN D 400 IU TAB PO SCH (08:24)
[2017-03-06 10:10] LABS: BASOPHILS # (AUTO) 0.1 K/uL (0.00-0.22); BASOPHILS % (AUTO) 1.1 % (0.0-2.0); EOSINOPHILS # (AUTO) 0.2 K/uL (0-0.4); EOSINOPHILS % (AUTO) 2.3 % (0.0-4.0); HEMATOCRIT 26.1 % (36-52); HEMOGLOBIN 8.5 g/dL (12.0-18.0); LYMPHOCYTES # (AUTO) 0.5 K/uL (2.0-11.5); LYMPHOCYTES % (AUTO) 5.3 % (20.5-51.1); MEAN CORPUSCULAR HEMOGLOBIN 30 pg (27-31); MEAN CORPUSCULAR HGB CONC 33 g/dL (33-37); MEAN CORPUSCULAR VOLUME 91 fL (80-94); MONOCYTES # (AUTO) 0.9 K/uL (0.8-1.0); MONOCYTES % (AUTO) 9.1 % (1.7-9.3); NEUTROPHILS % (AUTO) 82.2 % (42.2-75.2); PLATELET COUNT (AUTO) 268 K/uL (140-450); RED BLOOD CELL COUNT(AUTO) 2.86 MIL/uL (4.20-6.10); RED CELL DISTRIBUTION WIDTH 19.4 % (11.6-13.7); WHITE BLOOD COUNT (AUTO) 9.7 K/uL (4.8-10.8)
[2017-03-06 10:45] LABS: ALBUMIN 1.7 g/dL (3.4-5.0); ANION GAP 16.4 (8-16); ASPARTATE AMINOTRANSFERASE 19 U/L (15-37); CARBON DIOXIDE 17.1 mmol/L (21-32); CHLORIDE 109 mmol/L (98-107); GLUCOSE 168 mg/dL (74-106); POTASSIUM 3.5 mmol/L (3.5-5.1); SODIUM SERUM 139 mmol/L (136-145); TOTAL BILIRUBIN 0.4 mg/dL (0.0-1.0)
[2017-03-06 10:47] LABS: UREA NITROGEN, BLOOD 65 mg/dL (7-18)
--- NOTE | 2017-03-06 11:51 | NUR ---
PT AWAKE AT THIS TIME. FAMILY AT BEDSIDE.
[2017-03-06 12:00] VITALS: BP 121/70
[2017-03-06 16:00] VITALS: BP 131/71
--- NOTE | 2017-03-06 18:42 | NUR ---
PT KEPT CLEAN, DRY AND COMFORTABLE, NEEDS ATTENDED. WILL ENDORSE TO NEXT SHIFT. PT ON STABLE CONDITION. FOR CONTINUITY OF CARE. FAMILY AT BEDSIDE.
--- NOTE | 2017-03-06 19:20 | NUR ---
RECEIVED REPORT FROM DAY SHIFT RN. PT IS A/OX4, ON ROOM AIR, BERMUDIAN SPEAKING ONLY. PT HAS A LEFT WRIST 20G IV, INFUSING NS@75ML/HR. SKIN INTACT. PT IS ON BEDREST. SAFETY PRECAUTIONS IN PLACE. UPDATED BOARD. DISCUSSED PLAN OF CARE WITH PT, PT VERBALIZED UNDERSTANDING. VITAL SIGNS WITHIN NORMAL LIMITS. VITAL SIGNS ARE WITHIN NORMAL LIMITS. PT IN STABLE CONDITION, NO SIGNS OF DISTRESS NOTED. BED IN LOW POSITION, CALL LIGHT WITHIN REACH. WILL CONTINUE TO MONITOR.
[2017-03-06 20:02] VITALS: BP 126/72
[2017-03-06] MEDS: ATORVASTATIN 20 MG TAB PO SCH (20:34)
--- NOTE | 2017-03-06 20:35 | NUR ---
ADMINISTERED SCHEDULED MEDICATION, PT TOLERATED WELL. PT IN STABLE CONDITION, NO SIGNS OF DISTRESS NOTED. BED IN LOW POSITION, CALL LIGHT WITHIN REACH. WILL CONTINUE TO MONITOR.
[2017-03-07] VITALS: BP 123/59
[2017-03-07 04:00] VITALS: BP 136/74
[2017-03-07] MEDS: NACL 0.9% 1,000 ML IV SCH (05:29)
--- NOTE | 2017-03-07 07:10 | NUR ---
RECEIVED PATIENT REPORT AT BEDSIDE. PT IS A/OX4, ON ROOM AIR NO SOB. BELARUSIAN SPEAKING ONLY. PT HAS A LEFT WRIST 20G IV, INFUSING NS@75ML/HR. SKIN INTACT. PT IS ON BEDREST. SAFETY PRECAUTIONS IN PLACE. FELICIANO CATHETER IN PLACE DRAINING YELLOW URINE. NO C/O PAIN AT THIS TIME. PATIENT ON TELE MONITORING. BED LOWERED WITH CALL LIGHT WITHIN REACH. WILL CONTINUE TO MONITOR
--- NOTE | 2017-03-07 07:22 | NUR ---
ENDORSED PT TO DAY SHIFT RN FOR CONTINUITY OF CARE. PT IN STABLE CONDITION.
[2017-03-07 08:00] VITALS: BP 119/69
[2017-03-07 08:09] LABS: CARBON DIOXIDE 16.7 mmol/L (21-32); CHLORIDE 110 mmol/L (98-107); GLUCOSE 94 mg/dL (74-106); POTASSIUM 3.7 mmol/L (3.5-5.1); SODIUM SERUM 140 mmol/L (136-145)
[2017-03-07 08:15] LABS: CREATININE 5.3 mg/dL (0.7-1.3); UREA NITROGEN, BLOOD 69 mg/dL (7-18)
[2017-03-07 08:23] LABS: MAGNESIUM 1.6 mg/dL (1.8-2.4); PHOSPHORUS 4.8 mg/dL (2.5-4.9)
[2017-03-07] MEDS: SODIUM BICARBONATE 650 MG TAB PO SCH (08:52)
[2017-03-07] MEDS: VITAMIN D 400 IU TAB PO SCH (08:53)
[2017-03-07] MEDS: DOCUSATE 100 MG/10 ML UDC PO SCH (08:53)
[2017-03-07] MEDS: ASPIRIN 81 MG TAB.CHEW PO SCH (08:53)
[2017-03-07] MEDS: amLODIPine 5 MG TAB PO SCH (08:53)
[2017-03-07 10:33] LABS: BASOPHILS # (AUTO) 0.1 K/uL (0.00-0.22); BASOPHILS % (AUTO) 1.7 % (0.0-2.0); EOSINOPHILS # (AUTO) 0.3 K/uL (0-0.4); HEMATOCRIT 25.3 % (36-52); HEMOGLOBIN 8.1 g/dL (12.0-18.0); LYMPHOCYTES # (AUTO) 1.3 K/uL (2.0-11.5); LYMPHOCYTES % (AUTO) 14.8 % (20.5-51.1); MEAN CORPUSCULAR HEMOGLOBIN 30 pg (27-31); MEAN CORPUSCULAR HGB CONC 32 g/dL (33-37); MEAN CORPUSCULAR VOLUME 92 fL (80-94); MONOCYTES # (AUTO) 0.8 K/uL (0.8-1.0); NEUTROPHILS # (AUTO) 6.2 K/uL (1.8-7.7); NEUTROPHILS % (AUTO) 71.5 % (42.2-75.2); PLATELET COUNT (AUTO) 261 K/uL (140-450); RED BLOOD CELL COUNT(AUTO) 2.76 MIL/uL (4.20-6.10); RED CELL DISTRIBUTION WIDTH 18.3 % (11.6-13.7); WHITE BLOOD COUNT (AUTO) 8.7 K/uL (4.8-10.8)
--- NOTE | 2017-03-07 11:00 | NUR ---
ASSISTED PATIENT TO THE BATHROOM. PATIENT HAD A BM. STOOL DARK BROWN, FORMED, MODERATE IN SIZE
[2017-03-07 11:02] LABS: ALBUMIN 1.6 g/dL (3.4-5.0); ASPARTATE AMINOTRANSFERASE 26 U/L (15-37); CARBON DIOXIDE 15.8 mmol/L (21-32); CHLORIDE 110 mmol/L (98-107); GLUCOSE 90 mg/dL (74-106); POTASSIUM 3.8 mmol/L (3.5-5.1); SODIUM SERUM 140 mmol/L (136-145); TOTAL BILIRUBIN 0.2 mg/dL (0.0-1.0)
[2017-03-07 11:03] LABS: CREATININE 5.2 mg/dL (0.7-1.3); UREA NITROGEN, BLOOD 70 mg/dL (7-18)
[2017-03-07 12:00] VITALS: BP 131/62
--- NOTE | 2017-03-07 12:40 | NUR ---
PATIENT EATING LUNCH. FAMILY MEMBER PRESENT AT BEDSIDE. NO S/S OF DISTRESS NOTED
[2017-03-07] MEDS ORDERED: MAG SULF 2000 MG/WATER PREMIX 50 ML IV SCH (15:00)
[2017-03-07 16:00] VITALS: BP 143/80
--- NOTE | 2017-03-07 16:00 | NUR ---
FELICIANO CATHETER DISCONTINUED. 16FR FELICIANO CATHETER INSERTED. PATIENT TOLERATED WELL
--- NOTE | 2017-03-07 19:20 | NUR ---
PATIENT REPORT GIVEN AT BEDSIDE. PATIENT ENDORSED IN STABLE CONDITION
--- NOTE | 2017-03-07 19:25 | NUR ---
RECEIVED PT FROM MAGUI RN PT GREEK SPEAKER AAOX4 ON BEDREST ON TELEMETRY ST IV ON LEFT HAND INFUSING WELL, FELICIANO CATH DRAINING WELL YELLOW URINE RELATIVES AT BED SIDE INITIAL ASSESSMENT DONE
[2017-03-07 20:00] VITALS: BP 138/91
[2017-03-07] MEDS: ATORVASTATIN 20 MG TAB PO SCH (21:16)
--- NOTE | 2017-03-07 22:00 | NUR ---
PT SLEEPING WELL DENIES ANY PAIN OR DISCOMFORT REPOSITIONED Q2H
[2017-03-08] VITALS: BP 134/61
--- NOTE | 2017-03-08 01:00 | NUR ---
PT REMAIN STABLE NOT FEVER NOT DISTRESS NOTED ST ON TELEMETRY REPOSITIONED Q2H
[2017-03-08 04:00] VITALS: BP 129/71
--- NOTE | 2017-03-08 04:00 | NUR ---
SPONGE BATH GIVEN LINEN CHANGED, REPOSITIONED Q2H ON TELEMETRY ST FELICIANO CATH DRAINING WELL YELLOW URINE
--- NOTE | 2017-03-08 06:18 | NUR ---
PT SLEEPING NOT DISTRESS NOTED REPOSITIONED Q2H FELICIANO CATH DRAINING WELL YELLOW URINE ON TELEMETRY SR
--- NOTE | 2017-03-08 07:10 | NUR ---
RECEIVED PATIENT REPORT AT BEDSIDE. PATIENT AWAKE, ALERT AND ORIENTED. NO S/S OF DISTRESS NOTED. PATIENT ON ROOM AIR. IV LINE NOTED TO THE LEFT WRIST. FELICIANO CATHETER IN PLACE, DRAINING YELLOW URINE. PATIENT ON TELE MONITORING. BED LOWERED WITH CALL LIGHT WITHIN REACH. WILL CONTINUE TO MONITOR
[2017-03-08 08:00] VITALS: BP 127/65
[2017-03-08 08:41] LABS: BASOPHILS # (AUTO) 0.1 K/uL (0.00-0.22); BASOPHILS % (AUTO) 1.2 % (0.0-2.0); EOSINOPHILS # (AUTO) 0.3 K/uL (0-0.4); EOSINOPHILS % (AUTO) 3.1 % (0.0-4.0); HEMATOCRIT 26.3 % (36-52); HEMOGLOBIN 8.6 g/dL (12.0-18.0); LYMPHOCYTES # (AUTO) 1.2 K/uL (2.0-11.5); LYMPHOCYTES % (AUTO) 13.4 % (20.5-51.1); MEAN CORPUSCULAR HEMOGLOBIN 30 pg (27-31); MEAN CORPUSCULAR HGB CONC 33 g/dL (33-37); MEAN CORPUSCULAR VOLUME 91 fL (80-94); MONOCYTES # (AUTO) 0.7 K/uL (0.8-1.0); NEUTROPHILS # (AUTO) 6.4 K/uL (1.8-7.7); NEUTROPHILS % (AUTO) 74.3 % (42.2-75.2); PLATELET COUNT (AUTO) 285 K/uL (140-450); RED CELL DISTRIBUTION WIDTH 18.2 % (11.6-13.7); WHITE BLOOD COUNT (AUTO) 8.7 K/uL (4.8-10.8)
[2017-03-08] MEDS: amLODIPine 5 MG TAB PO SCH (08:51)
[2017-03-08] MEDS: ASPIRIN 81 MG TAB.CHEW PO SCH (08:51)
[2017-03-08] MEDS: SODIUM BICARBONATE 650 MG TAB PO SCH ×2 (08:51→20:58)
[2017-03-08] MEDS: VITAMIN D 400 IU TAB PO SCH (08:52)
[2017-03-08] MEDS: DOCUSATE 100 MG/10 ML UDC PO SCH (08:52)
--- NOTE | 2017-03-08 09:00 | NUR ---
DUE MEDS GIVEN. PATIENT TOLERATED WELL
[2017-03-08 09:10] LABS: ALBUMIN 1.8 g/dL (3.4-5.0); ANION GAP 16.4 (8-16); ASPARTATE AMINOTRANSFERASE 28 U/L (15-37); CARBON DIOXIDE 18.1 mmol/L (21-32); CHLORIDE 109 mmol/L (98-107); GLUCOSE 103 mg/dL (74-106); POTASSIUM 3.5 mmol/L (3.5-5.1); SODIUM SERUM 140 mmol/L (136-145); TOTAL BILIRUBIN 0.3 mg/dL (0.0-1.0)
[2017-03-08 09:11] LABS: CREATININE 5.6 mg/dL (0.7-1.3); UREA NITROGEN, BLOOD 70 mg/dL (7-18)
[2017-03-08 12:00] VITALS: BP 118/70
--- NOTE | 2017-03-08 13:00 | NUR ---
PATIENT IN BED, WATCHING TELEVISION. NO S/S OF DISTRESS NOTED
[2017-03-08 16:00] VITALS: BP 128/59
--- NOTE | 2017-03-08 18:33 | NUR ---
PATIENT SEEN BY DR DON. PER DR DON'S PERSPECTIVE, PATIENT IS CLEARED TO BE DISCHARGED
--- NOTE | 2017-03-08 19:23 | NUR ---
PATIENT REPORT GIVEN AT BEDSIDE. PATIENT ENDORSED IN STABLE CONDITION
--- NOTE | 2017-03-08 19:30 | NUR ---
RECEIVED PT FROM MAGUI RN PT CHINESE SPEAKER AAOX4 ON BEDREST , IV ON LEFT HAND PATENT, ON TELEMETRY SR FELICIANO CATH DRAINING WELL YELLOW URINE DENIES ANY PAIN AT THIS TIME INITIAL ASSESSMENT DONE
[2017-03-08 20:00] VITALS: BP 100/65
[2017-03-08] MEDS: ATORVASTATIN 20 MG TAB PO SCH (20:59)
--- NOTE | 2017-03-08 22:00 | NUR ---
PT REPOSITIONED WATCHING TV DENIES ANY PAIN SEEM STABLE
[2017-03-09] VITALS: BP 110/56
--- NOTE | 2017-03-09 01:00 | NUR ---
PT SLEEPING WELL NOT DISTRESS NOTED ON TELEMETRY SR FELICIANO CATH DRAINING WELL YELLOW URINE
[2017-03-09 04:00] VITALS: BP 109/70
--- NOTE | 2017-03-09 04:11 | NUR ---
SPONGE BATH GIVEN , LINEN CHANGED DENIES ANY PAIN REMAIN STABLE
--- NOTE | 2017-03-09 06:35 | NUR ---
PT RESTING ON BED NOT FEVER ON TELEMETRY SR , FELICIANO CATH DRAINING WELL LYELLOW URINE PT HAS BEEN REPOSITIONED Q2H
--- NOTE | 2017-03-09 07:30 | NUR ---
RECEIVED PT AWAKE. NO SOB NOTED. NO C/O PAIN AT THIS TIME. IV TO LEFTY WRIST PATENT AND INTACT.CHEST CLEAR, ABDOMEN SOFT, BOWEL SOUNDS PRESENT. WITH FELICIANO CATHETER DRAINING MODERATE AMOUNTS OF CLOUDY URINE. INSTRUCTED PT TO CALL FOR ASSISTANCE, CALL LIGHT WITHIN REACH, PT VERBALIZED UNDERSTANDING.
[2017-03-09 08:00] VITALS: BP 128/70
--- NOTE | 2017-03-09 08:00 | NUR ---
PHYSICAL THERAPY ON GOING AT THE BEDSIDE.
[2017-03-09 08:29] LABS: ANION GAP 13.6 (8-16); CARBON DIOXIDE 19.9 mmol/L (21-32); CHLORIDE 109 mmol/L (98-107); GLUCOSE 100 mg/dL (74-106); POTASSIUM 3.5 mmol/L (3.5-5.1); SODIUM SERUM 139 mmol/L (136-145)
[2017-03-09 08:30] LABS: MAGNESIUM 1.9 mg/dL (1.8-2.4); PHOSPHORUS 4.8 mg/dL (2.5-4.9)
[2017-03-09 09:25] LABS: UREA NITROGEN, BLOOD 69 mg/dL (7-18)
[2017-03-09 09:26] LABS: CREATININE 5.4 mg/dL (0.7-1.3)
[2017-03-09] MEDS: amLODIPine 5 MG TAB PO SCH (10:04)
[2017-03-09] MEDS: ASPIRIN 81 MG TAB.CHEW PO SCH (10:04)
[2017-03-09] MEDS: VITAMIN D 400 IU TAB PO SCH (10:04)
[2017-03-09] MEDS: SODIUM BICARBONATE 650 MG TAB PO SCH ×2 (10:04→20:38)
[2017-03-09] MEDS: DOCUSATE 100 MG/10 ML UDC PO SCH (10:05)
[2017-03-09 12:00] VITALS: BP 130/75
--- NOTE | 2017-03-09 12:00 | NUR ---
PT SEEN BY DR. AZUL WITH NO ORDERS.
--- NOTE | 2017-03-09 13:56 | NUR ---
CM NOTE INITIAL REVIEW FAXED TO [facility] / FAX# [phone], C: [phone]
--- NOTE | 2017-03-09 15:49 | NUR ---
1400 SPOKE WITH PT WITH KAMRON RN [facility] AND PT IS IN AGREEMENT TO SNF FOR 7 DAYS OF IV ABX. HAD ALSO LEFT VM WITH EBONY LEONG SON. FAXED INFORMATION TO [facility] TO QUERY FOR ADMISSION. 1540 RECEIVED CALL BACK FROM EBONY LEONG AND HE IS IN AGREEMENT TO SNF AND UNDERSTANDS THAT MUST BE A CONTRACTED SNF WITH IE. PER MERVIN AT [facility] NO ISOLATION BEDS.
[2017-03-09 16:00] VITALS: BP 117/77
--- NOTE | 2017-03-09 19:05 | NUR ---
PT AWAKE. NO SOB NOTED. NO COMPLAINTS MADE AT THIS TIME. WILL ENDORSE TO NEXT SHIFT NURSE FOR CONTINUITY OF CARE.
--- NOTE | 2017-03-09 19:20 | NUR ---
RECEIVED REPORT FROM DAY RN, PATIENT RESTING IN BED, AWAKE ALERT ORIENTED X4, NO S/S OF DISTRESS NOTED ,RESPIRATION EVEN AND UNLABORED, IV PATENT AND INTACT, CALL LIGHT WITHIN REACH, SAFETY MEASURE ENSURED, WILL CONTINUE TO MONITOR.
[2017-03-09 19:49] VITALS: BP 141/62
[2017-03-09] MEDS: ATORVASTATIN 20 MG TAB PO SCH (20:38)
--- NOTE | 2017-03-09 20:40 | NUR ---
PATIENT HAD LARGE BOWEL MOVEMENT, CLEANED PATIENT AND REPOSITIONED PATIENT TO HIS COMFORTABLE POSITION. DUE MEDICATION GIVEN, PATIENT TOLERATED WELL. NO S/S OF DISTRESS NOTED, RESPIRATION EVEN AND UNLABORED, CALL LIGHT WITHIN REACH, SAFETY MEASURE ENSURED, WILL CONTINUE TO MONITOR.
--- NOTE | 2017-03-09 22:45 | NUR ---
NO CHANGE IN CONDITION, PATIENT WAS SLEEPING, NO S/S OF DISTRESS NOTED, RESPIRATION EVEN AND UNLABORED, REPOSITIONED PATIENT WITH THE LEADED GLASS INSTALLER, CALL LIGHT WITHIN REACH, SAFETY MEASURE ENSURED, WILL CONTINUE TO MONITOR.
[2017-03-10] VITALS: BP 147/72
--- NOTE | 2017-03-10 00:24 | NUR ---
PATIENT WAS SLEEPING, EASY TO AROUSE. VITAL SIGNS STABLE, NO S/S OF DISTRESS NOTED, RESPIRATION EVEN AND UNLABORED, ASSISTED PATIENT TURNING HIMSELF IN THE BED, CALL LIGHT WITHIN REACH, SAFETY MEASURE ENSURED, WILL CONTINUE TO MONITOR.
--- NOTE | 2017-03-10 02:25 | NUR ---
NO CHANGE IN CONDITION, PATIENT WAS SLEEPING, EASY TO AROUSE. REPOSITIONED PATIENT TO HIS COMFORTABLE POSITION, CALL LIGHT WITHIN REACH, SAFETY MEASURE ENSURED, WILL CONTINUE TO MONITOR.
[2017-03-10 04:00] VITALS: BP 127/75
--- NOTE | 2017-03-10 04:20 | NUR ---
PATIENT WAS SLEEPING, EASY TO AROUSE. REPOSITIONED PATIENT TO HIS COMFORTABLE POSITION, CALL LIGHT WITHIN REACH, SAFETY MEASURE ENSURED, WILL CONTINUE TO MONITOR.
--- NOTE | 2017-03-10 07:22 | NUR ---
ENDORSED PLAN OF CARE TO DAY SHIFT RN [place], PATIENT IS IN STABLE CONDITION, NO S/S OF DISTRESS NOTED.
--- NOTE | 2017-03-10 07:30 | NUR ---
RECEIVED PT AWAKE. NO SOB NOTED. NO C/O PAIN AT THIS TIME. IV TO LEFT WRIST PATENT AND INTACT.CHEST CLEAR, ABDOMEN SOFT, BOWEL SOUNDS PRESENT. WITH FELICIANO CATHETER DRAINING MODERATE AMOUNTS OF CLOUDY URINE. INSTRUCTED PT TO CALL FOR ASSISTANCE, CALL LIGHT WITHIN REACH, BED ON LOW POSITION. PT VERBALIZED UNDERSTANDING.
[2017-03-10 08:00] VITALS: BP 162/95
[2017-03-10] MEDS: VITAMIN D 400 IU TAB PO SCH (09:04)
[2017-03-10] MEDS: ASPIRIN 81 MG TAB.CHEW PO SCH (09:04)
[2017-03-10] MEDS: SODIUM BICARBONATE 650 MG TAB PO SCH (09:04)
[2017-03-10] MEDS: amLODIPine 5 MG TAB PO SCH (09:04)
[2017-03-10] MEDS: DOCUSATE 100 MG/10 ML UDC PO SCH (09:04)
--- NOTE | 2017-03-10 11:55 | NUR ---
INFORMATION FOR SNF PLACEMENT FAXED TO [facility].
[2017-03-10 12:00] VITALS: BP 107/69
--- NOTE | 2017-03-10 13:09 | NUR ---
03/10/17 RD INITIAL ASSESSMENT COMPLETED PLEASE REFER TO NUTRITION ASSESSMENT UNDER CARE ACTIVITY FOR ESTIMATED NUTRITIONAL NEEDS. 1. CONTINUE 2 GM SODIUM DIET TOLERATED PER MD --DIET APPROPRIATE FOR MEDICAL HISTORY --PT MEETING >75% OF ESTIMATED KCAL AND PROTEIN NEEDS 2. RD TO FOLLOW-UP 3-5 DAYS, MODERATE RISK VALE SHIP[address] RD
--- NOTE | 2017-03-10 13:53 | NUR ---
1330 PER SHANE AT [facility] [phone] THEY WILL ACCEPT PT AND HE CAN GO TO ROOM 100C. LEFT MESSAGE FOR PTS SON EBONY. PT IS IN AGREEMENT WITH GOING TO [facility]. SPOKE WITH SAUD FLORES AT [facility] AND SHE WILL PROVIDE [facility] WITH AUTH # AND CALL BACK WITH AUTH# FOR TRANSPORT.
--- NOTE | 2017-03-10 14:30 | NUR ---
PATIENT TO GO TO [facility] ROOM [address] UNDER [address] RAMÍREZ. BOAZ VILLAVICENCIO FROM [facility] AUTH FOR [facility] IS [id number]. AUTH FOR [facility] IS [id number]. I SET UP TRANSPORT FOR 6:30P.Jamie SALVADOR RN CHARGE NURSE AWARE. LYNN FROM [facility] NOTIFIED OF AUTH NUMBER.
[2017-03-10] MEDS ORDERED: ROC2I IV (15:13)
[2017-03-10] MEDS ORDERED: diphenhydrAMINE 50 MG/ML VIAL IVP PRN (15:16)
[2017-03-10 16:00] VITALS: BP 135/84
--- NOTE | 2017-03-10 16:00 | NUR ---
SPOKE WITH PT'S SON EBONY OVER THE PHONE [phone] AND NOTIFIED REGARDING THE PT'S TRANSFER TO SNF. VERBALIZED UNDERSTANDING.
--- NOTE | 2017-03-10 16:15 | NUR ---
REPORT GIVEN TO BIANCA CALISUPERVISOR INSECTICIDE AT [facility].
--- NOTE | 2017-03-10 17:30 | NUR ---
DISCHARGE PHOTOS TAKEN AND DOCUMENTED.
--- NOTE | 2017-03-10 18:56 | NUR ---
PT RESTING. NO SOB NOTED. NO SIGNS OF PAIN. WILL ENDORSE TO NEXT SHIFT NURSE FOR CONTINUITY OF CARE.
--- NOTE | 2017-03-10 19:10 | NUR ---
PT WHEELED OUT BY [facility] IN STABLE CONDITION. IV HEPLOCK, FELICIANO CATHETER IN PLACE. TELEBOX REMOVED.
== END 2017-03-10 19:10 | DRG 720 ==
LOC: MED 19:57 → MTU 03-05 00:37
PROVIDERS: ADMIT Hospitalist; ATTEND Hospitalist
PROC: 30233N1 Transfusion of Nonautologous Red Blood Cells into Peripheral Vein, Percutaneous Approach (ICD-10-PCS; principal; 2017-03-05)
DX: A41.9 Sepsis, unspecified organism (principal); N17.0 Acute kidney failure with tubular necrosis; C79.82 Secondary malignant neoplasm of genital organs; N39.0 Urinary tract infection, site not specified; I12.0 Hypertensive chronic kidney disease with stage 5 chronic kidney disease or end stage renal disease; N18.6 End stage renal disease; N12 Tubulo-interstitial nephritis, not specified as acute or chronic; D64.9 Anemia, unspecified; B96.20 Unspecified Escherichia coli [E. coli] as the cause of diseases classified elsewhere
CPT/HCPCS: 36415; 71010; 80048; 80053; 81001; 83605; 83690; 83735; 84100; 84484; 85025; 85610; 86886; 86900; 86901; 86920; 87040; 87081; 87086; 87186; 87804; 93005; 96361; 96365; 97110; 97116; 97140; 97530; 99285; J0696; J1200; J3475; J7030; J7060; P9016